=== PATIENT | female | born 1960 | race Caucasian/White ===

== ENCOUNTER 2023-04-28 17:16 | Emergency (ER) | payer SELFPAY ==
[2023-04-28 17:31] VITALS: BP 165/98; PULSE 107; RESP 20; TEMP 37.3; O2SAT 94; BMI 42.3
--- NOTE | 2023-04-28 21:17 | ED_ITS ---
HPI - Extremity Problem General Chief complaint: Extremity Problem,Nontraumatic Stated complaint: lump on rt leg that is bleeding Time Seen by Provider: 04/28/23 18:36 Source: patient Mode of arrival: Ambulatory History of Present Illness HPI Narrative: Patient is a 62-year-old female who is here for evaluation of a lump that has been on the back of her right leg for several years. She is not had it evaluated. It has grown larger during this time. He states that it has started to bleed. This happened specifically when it gets hit. It is not painful. Related Data Home Medications Medication Instructions Recorded Confirmed No Known Home Medications 04/28/23 04/28/23 Allergies Allergy/AdvReac Type Severity Reaction Status Date / Time corn syrup AdvReac Unknown Verified 04/28/23 21:45 Review of Systems Constitutional Constitutional: Reports system reviewed and no additional complaints, except as documented Integumentary/Breasts Skin/Breast: Reports system reviewed and no additional complaints, except as documented Hematologic/Lymphatic On Anticoagulants: No Patient History Social History Smoking Status: Current every day smoker Smoking Status: Current every day smoker tobacco type: cigarettes Substance Use Type: does not use Exam Initial Vital Signs Initial Vital Signs: Vital Signs Temperature 99.2 F 04/28/23 17:31 Pulse Rate 107 H 04/28/23 17:31 Respiratory Rate 20 04/28/23 17:31 Blood Pressure 165/98 H 04/28/23 17:31 Pulse Oximetry 94 04/28/23 17:31 Oxygen Delivery Method Room Air 04/28/23 17:31 [facility] Head: normal to inspection and normocephalic Skin Other: Patient has a large pedunculated mass located on the posterior aspect of the right thigh. It does have a central ulceration. There is no bleeding. Neuro General: patient alert and patient awake Extrem General: capillary refill normal Course Orders Ordered: ED Orders 04/28/23 21:16 Complete Blood Count AUTO DIFF Stat Comprehensive Metabolic Panel Stat Lactate (Lactic Acid) Stat Lipase Stat PTT Partial Thromboplastin [place] Stat Procalcitonin Stat 04/28/23 21:47 Blood Culture Stat Discontinued Medications Sodium Chloride (Normal Saline 0.9%) 1,000 mls @ 1,000 mls/hr IV BOLUS ONE Stop: 04/28/23 21:50 Last Admin: 04/28/23 21:30 Dose: Not Given Documented By: RENALDO Ondansetron HCl (Ondansetron 4 Mg/2 Ml Inj) 4 mg IV NOW PRN PRN Reason: Nausea And Vomiting Ondansetron HCl (Ondansetron 4 Mg Odt) 4 mg SL NOW PRN PRN Reason: Nausea And Vomiting Vital Signs Vital signs: Vital Signs - 8 hr 04/28/23 22:33 Pulse Rate 95 H Respiratory Rate 18 Blood Pressure 158/90 H Pulse Oximetry 95 Oxygen Delivery Method Room Air MDM - Extremity (Nontraumatic) Lab Data 04/28/23 21:16 04/28/23 21:16 Labs: Lab Results 04/28/23 04/28/23 04/28/23 Range/Units 21:16 21:16 21:16 WBC 13.5 H (4.5-11.0) X10^3/uL RBC 4.53 (4.0-5.2) X10^6/uL Hgb 13.3 (12.0-16.0) g/dL Hct 40.0 (36-46) % MCV 88.2 (80-100) fL MCH 29.3 (26-34) PG MCHC 33.3 (30-36) % RDW 14.1 (11.6-14.8) % Plt Count 336 (150-400) X10^3/uL Neut % (Auto) 72.6 (50-75) % Lymph % (Auto) 17.8 L (25-40) % [place] % (Auto) 7.8 (3-14) % Eos % (Auto) 0.9 L (2-4) % Baso % (Auto) 0.9 (0-2) % Neut # (Auto) 9800 H (8156-8010) /uL Lymph # (Auto) 2400 (8702-2555) /uL [place] # (Auto) 1000 H (0-900) /uL Eos # (Auto) 100 (0-450) /uL Baso # (Auto) 100 (0-100) /uL APTT 32 (26-36) SECONDS Sodium 135 L (137-145) mmol/L Potassium 4.2 (3.4-5.1) mmol/L Chloride 101 (98-107) mmol/L Carbon Dioxide 26 (22-32) mmol/L BUN 13 (7-17) mg/dL Creatinine 0.59 (0.52-1.04) mg/dL Estimated GFR > 60 (>60) mL/min BUN/Creatinine Ratio 22.0 (6-22) Glucose 115 H (80-110) mg/dL Lactate (0.7-2.1) mmol/L Calcium 9.0 (8.4-10.2) mg/dL Total Bilirubin 0.5 (0.2-1.3) mg/dL AST 22 (14-36) IU/L ALT 25 (<35) IU/L Alkaline Phosphatase 87 (38-126) U/L Total Protein 8.4 H (6.3-8.2) g/dL Albumin 4.2 (3.5-5.0) g/dL Globulin 4.2 H (1.7-4.1) g/dL Albumin/Globulin Ratio 1.0 (1.0-2.8) Lipase 85 (23-300) U/L Procalcitonin 0.06 (<0.5) ng/mL 04/28/ Range/Units 21:16 WBC (4.5-11.0) X10^3/uL RBC (4.0-5.2) X10^6/uL Hgb (12.0-16.0) g/dL Hct (36-46) % MCV (80-100) fL MCH (26-34) PG MCHC (30-36) % RDW (11.6-14.8) % Plt Count (150-400) X10^3/uL Neut % (Auto) (50-75) % Lymph % (Auto) (25-40) % [place] % (Auto) (3-14) % Eos % (Auto) (2-4) % Baso % (Auto) (0-2) % Neut # (Auto) (3385-2900) /uL Lymph # (Auto) (0279-0788) /uL [place] # (Auto) (0-900) /uL Eos # (Auto) (0-450) /uL Baso # (Auto) (0-100) /uL APTT (26-36) SECONDS Sodium (137-145) mmol/L Potassium (3.4-5.1) mmol/L Chloride (98-107) mmol/L Carbon Dioxide (22-32) mmol/L BUN (7-17) mg/dL Creatinine (0.52-1.04) mg/dL Estimated GFR (>60) mL/min BUN/Creatinine Ratio (6-22) Glucose (80-110) mg/dL Lactate 0.9 (0.7-2.1) mmol/L Calcium (8.4-10.2) mg/dL Total Bilirubin (0.2-1.3) mg/dL AST (14-36) IU/L ALT (<35) IU/L Alkaline Phosphatase (38-126) U/L Total Protein (6.3-8.2) g/dL Albumin (3.5-5.0) g/dL Globulin (1.7-4.1) g/dL Albumin/Globulin Ratio (1.0-2.8) Lipase (23-300) U/L Procalcitonin (<0.5) ng/mL MDM Narrative Medical decision making narrative: Patient has a large pedunculated ulcerated lesion on the posterior aspect of the right thigh. Is not currently bleeding. Low suspicion that this is an infection. I have high suspicion that this is cancerous in origin. Patient does require follow-up with general surgery to discuss biopsy versus removal of this mass. No further workup is required here in the emergency department. She was given instructions that she does need to follow-up with general surgery and my concern that this is a cancerous mass. She was given information to contact General surgery. She expressed understanding and agreement Discharge Plan Departure Patient Disposition: Home Clinical Impression: Mass of right lower leg Activity Restrictions/Additional Instructions: I recommend that you contact the general surgery department at the number provided below. It is important that you have a follow-up to have this mass looked at further and potentially biopsied or removed. Return to the emergency department for new symptoms. Prescriptions: No Action No Known Home Medications Referrals: Loco Vasquez MD [Physician] - Stand Alone Forms: Patient Portal/API
[2023-04-28 21:35] LABS: Add Manual Diff / Slide Review NO; Basophils Absolute Auto 100 /uL (0-100); Basophils Percent Auto 0.9 % (0-2); Eosinophils Absolute Auto 100 /uL (0-450); Eosinophils Percent Auto 0.9 % (2-4); Hemoglobin 13.3 g/dL (12.0-16.0); Lymphocytes Absolute Auto 2400 /uL (1100-4500); Lymphocytes Percent Auto 17.8 % (25-40); Mean Corpuscular HGB Conc 33.3 % (30-36); Mean Corpuscular Hemoglobin 29.3 PG (26-34); Mean Corpuscular Volume 88.2 fL (80-100); Monocytes Absolute Auto 1000 /uL (0-900); Monocytes Percent Auto 7.8 % (3-14); Neutrophils Absolute Auto 9800 /uL (1500-7000); Neutrophils Percent Auto 72.6 % (50-75); Platelet Count 336 X10^3/uL (150-400); Red Blood Cell Count 4.53 X10^6/uL (4.0-5.2); Red Cell Distribution Width 14.1 % (11.6-14.8); White Blood Cell Count 13.5 X10^3/uL (4.5-11.0)
--- NOTE | 2023-04-28 21:39 | PC.NURSE ---
Patient has a growth the size of a soft ball that is attached to her right, upper, posterior thigh. The growth is attached by a small stem approximately 1.5inches in diameter. Patient states it only causes pain that is annoying at a 2/10 when she stands and the stem pulls against her skin. The growth has bled today due to pressure applied to it while sitting on the toilet. Patient states she has no insurance and is concerned about having to seek further medical attention. I provided patient with [employer] finder documents and information about kitty care here at the [facility].
[2023-04-28 21:43] LABS: Lactate (Lactic Acid) 0.9 mmol/L (0.7-2.1)
[2023-04-28 21:45] LABS: Alanine Aminotransferase 25 IU/L (<35); Albumin 4.2 g/dL (3.5-5.0); Alkaline Phosphatase 87 U/L (38-126); Aspartate Aminotransferase 22 IU/L (14-36); Bilirubin Total 0.5 mg/dL (0.2-1.3); Blood Urea Nitrogen 13 mg/dL (7-17); Carbon Dioxide 26 mmol/L (22-32); Chloride 101 mmol/L (98-107); Estimated Glomerular Filt Rate > 60 mL/min (>60); Globulin 4.2 g/dL (1.7-4.1); Glucose 115 mg/dL (80-110); HEMOLYSIS < 15 (0-50); Lipase 85 U/L (23-300); Potassium 4.2 mmol/L (3.4-5.1); Sodium 135 mmol/L (137-145); Total Protein 8.4 g/dL (6.3-8.2)
[2023-04-28 21:48] LABS: PTT Partial Thromboplastin Tim 32 SECONDS (26-36)
[2023-04-28 22:00] LABS: Procalcitonin 0.06 ng/mL (<0.5)
[2023-04-28 22:33] VITALS: BP 158/90; PULSE 95; RESP 18; O2SAT 95
== END 2023-04-28 22:47 | disposition home or self-care (01) ==
PROVIDERS: Emergency Provider Emergency Medicine
DX: R22.41 Localized swelling, mass and lump, right lower limb (principal)
CPT/HCPCS: 36415; 80053; 83605; 83690; 84145; 85025; 85730; 87040; 99283

== ENCOUNTER 2023-06-02 07:49 | Day surgery (SDC) | payer SELFPAY ==
[2023-05-26 07:10] VITALS: BMI 40.8
--- NOTE | 2023-06-02 | PATH_ITS ---
[facility] Accession Number: [id number] No. of containers..01 Tissue . 01 Material submitted: . thigh - RIGHT POSTERIOR THIGH MASS . 01 Diagnosis: Right Posterior Thigh Mass, Excision: Pending outside expert consultation. MRV 06/15/2023 1307 Local . 01 Electronically signed: . Gabi Thapa MD, Dermatopathologist NPI- [id number] . 01 Gross description: . The specimen is received in formalin labeled with the patient's name, , and right posterior thigh mass, and consists of an unoriented ellipse of skin measuring 5.7 x 2.8 cm and excised to a depth of 2.5 cm. Attached to the cutaneous surface is a large pedunculated fragment of skin measuring 10.8 x 9.2 x 6.2 cm. The surface of this nodule has a large schroeder-ding lesion consistent with necrosis measuring 9.3 x 6.2 cm. The margin is inked blue. Sectioning reveals a pink-yellow soft cut surface with schroeder, firm discoloration located adjacent to the aforementioned ulcerated area. Vehicle Assembler sections are submitted in cassettes A1-A5. ([id number]) . Additional sections are submitted in cassettes A6-A10. ([id number]) /BIANCA 06/13/[id number] Local . 01 Pathologist provided ICD-10: D48.5 . 01 CPT . 650997 Specimen Comment: A courtesy copy of this report has been sent to [phone] Performed at: [address] [facility], [place], [place] [id number] MD Mark Roberts MD Phone: [phone]
[2023-06-02 08:35] VITALS: BMI 40.8
[2023-06-02 09:01] VITALS: BP 131/71; PULSE 74; RESP 16; TEMP 36.8; O2SAT 98
--- NOTE | 2023-06-02 09:14 | PM.PREOP ---
Pre-operative Note COVID-19 COVID-19 status: Not tested Interval Note History & Physical reviewed/Exam performed by Physician: Yes Changes to H&P: No ASA Class (for procedural sedation): III
[2023-06-02] MEDS: CEFAZOLIN 2 GM/100 ML PREMIX 100 ML IV (09:38)
--- NOTE | 2023-06-02 09:55 | SUR.OPER ---
Lateral on a milian bag, head on pillow, gel axillary roll in place, bottom leg bent with gel pad under knee to foot, upper leg straight and supported with pillows. Upper arm supported by pillows and secured over bottom arm to padded arm board. Safety belt at hip, safety blanket lower legs.
[2023-06-02] MEDS: LIDOCAINE 1% 20 ML, EPINEPHrine 0.2 MG INJ (10:07)
--- NOTE | 2023-06-02 10:07 | PM.OP.1 ---
Operative Date/Time/Diagnoses Date of procedure: 06/02/23 Time of procedure: 10:08 Pre-op diagnosis: Right posterior thigh mass Post-op diagnosis: same Procedure & Clinicians Procedure: Excisional biopsy of right posterior thigh mass Same procedure as scheduled: Yes Surgeon: Loco Vasquez Business Continuity Planner: Dev Espana Anesthesia Type: General Operative Notes Procedure in detail: The patient was brought into the operating room and placed in the left lateral decubitus position on a beanbag. Ancef was administered. Monitored anesthesia was administered. A time-out was performed. The skin around the mass was prepped with Betadine and draped in the normal fashion. The mass was approximately 15 cm x 10 cm x 10 cm on rather narrow stalk. We excised the mass with an elliptical incision to take base. The ellipse was approximately 12 cm by 5 cm. Two bleeders were cauterized. The mass was sent in formalin. We then closed the incision in layers using multiple interrupted 3-0 Vicryl sutures and multiple horizontal mattress sutures with 2-0 nylon. EBL: 10 mL Specimen: Right posterior thigh mass Post-operative Disposition: PACU
[2023-06-02 10:14] VITALS: BP 112/59; PULSE 93; RESP 14; TEMP 36.3; O2SAT 94
[2023-06-02 10:20] VITALS: BP 102/51; PULSE 105; RESP 12; O2SAT 93
[2023-06-02 10:23] VITALS: BP 146/52; PULSE 82; RESP 18; O2SAT 98
== END 2023-06-02 10:37 | disposition home or self-care (01) ==
PROVIDERS: PCP Surgery; Referring Provider Surgery; Visit Provider Surgery
PROC: (CPT 27337; principal; 2023-06-02 09:30)
DX: D48.5 Neoplasm of uncertain behavior of skin (principal)
CPT/HCPCS: 27337; J0171; J0690; J1100; J1885; J2405; J2704